=== PATIENT | female | born 1970 | race Caucasian/White ===

== ENCOUNTER 2020-02-10 09:39 | Inpatient (IN) | payer MEDICAID ==
[~2020-02-10] VITALS: Ht 149.9 cm; Wt 76.9 kg
[2020-02-10] MEDS: BLOOD SUGAR DIAGNOSTIC STRIP TEST SCH ×2 (06:30→21:57)
[2020-02-10] MEDS: INSULIN LISPRO 100 UNITS/ML SUBCUT SCH ×3 (07:00→22:02)
[2020-02-10 10:33] LABS: BASOPHILS % 0.2 % (0.0-2.0); EOSINOPHILS % 0.2 % (0.0-5.0); HEMATOCRIT. 36.6 % (36.0-48.0); HEMOGLOBIN. 12.4 g/dL (12.0-16.0); LYMPHOCYTES % 14.7 % (20.0-50.0); MEAN CORPUSCULAR HEMOGLOBIN 29.2 pg (28.0-32.0); MEAN CORPUSCULAR VOLUME 86.1 fL (81.0-99.0); MONOCYTES % 4.3 % (2.0-8.0); NEUTROPHILS % 80.6 % (40.0-76.0); PLATELET 161 x1000/uL (130-400); RED BLOOD CELL COUNT 4.25 mill/uL (4.2-5.4); RED CELL DISTRIBUTION WIDTH 13.6 % (11.6-14.6)
[2020-02-10 10:41] LABS: CHLORIDE 101 mEq/L (98-107)
[2020-02-10 11:51] LABS: BG BASE EXCESS 3.4 mmol/L (-2.0-2.0); BG CARBOXYHEMOGLOBIN 0.4 % (0.5-1.5); BG DEOXYHEMOGLOBIN 6.8 % (0.0-5.0); BG HCO3 ACT 28.3 mmol/L (22.0-26.0); BG METHEMOGLOBIN 0.1 % (0.0-1.5); BG OXYGEN SATURATION 93.2 % (92.0-98.5); BG OXYHEMOGLOBIN 92.7 % (94.0-97.0); BG PCO2 44.2 mmHg (35.0-45.0); BG PH 7.424 (7.350-7.450); BG PO2 65.7 mmHg (75.0-100.0); BG SAMPLE SITE RIGHT RADIAL; BG VENT MODE NASAL CANNULA
[2020-02-10] MEDS ORDERED: CEFTRIAXONE 1 G PREMIX 50 ML IV ONE (12:00)
[2020-02-10] MEDS ORDERED: DEXAMETHASONE 4MG/ML 1ML VIAL IV ONE (12:00)
[2020-02-10] MEDS ORDERED: AZITHROMYCIN 500 MG in DEXT 5% WATER 250 ML IV ONE (12:00)
[2020-02-10] MEDS ORDERED: DEXTROSE 50% WATER 50ML SYRINGE IV PRN (14:15)
[2020-02-10] MEDS ORDERED: DOCUSATE SODIUM 100MG CAPSULE PO PRN (14:15)
[2020-02-10] MEDS ORDERED: ACETAMINOPHEN 325MG TABLET PO PRN ×2 (14:15)
[2020-02-10] MEDS ORDERED: KETOROLAC 15MG/ML VIAL IV PRN (14:15)
[2020-02-10] MEDS ORDERED: MAGNESIUM/ALUMINUM HYDROXIDE/SIMETHICONE 30ML UDC PO PRN (14:15)
[2020-02-10] MEDS ORDERED: ENOXAPARIN 40MG/0.4ML SYR SUBCUT SCH (14:15)
[2020-02-10] MEDS ORDERED: CLONIDINE 0.1MG TABLET PO PRN (14:15)
[2020-02-10] MEDS ORDERED: NITROGLYCERIN 0.4MG TABLET SL SL PRN (14:15)
[2020-02-10] MEDS ORDERED: ONDANSETRON HCL 4MG/2ML INJ IV PRN (14:15)
[2020-02-10] MEDS ORDERED: NA PHOS,M-B/NA PHOS,DI-BA ENEMA 118ML PR PRN (14:15)
[2020-02-10] MEDS ORDERED: GUAIFENESIN 200MG/10ML SUGAR FREE UDC PO PRN (14:15)
[2020-02-10] MEDS ORDERED: ALBUTEROL 6.7GM HFA INHALER ORI PRN (14:15)
[2020-02-10] MEDS ORDERED: ALBUTEROL 6.7GM HFA INHALER ORI SCH (15:00)
[2020-02-10] MEDS: ALBUTEROL 6.7GM HFA INHALER ORI SCH ×2 (15:21→21:55)
[2020-02-10] MEDS: GUAIFENESIN/DM 600MG/30MG ER TAB 12HR PO SCH (15:48)
[2020-02-10] MEDS: ENOXAPARIN 40MG/0.4ML SYR SUBCUT SCH (16:00)
[2020-02-10] MEDS ORDERED: AZITHROMYCIN 500 MG in DEXT 5% WATER 250 ML IV SCH (16:00)
[2020-02-10] MEDS ORDERED: ENOXAPARIN 30MG/0.3ML SYR SUBCUT SCH (21:00)
[2020-02-10] MEDS: FAMOTIDINE 20MG TABLET PO SCH (22:03)
[2020-02-10] MEDS: ASCORBIC ACID 500 MG TABLET PO SCH (22:03)
[2020-02-11] MEDS: INSULIN GLARGINE UD 100 UNITS/ML SYR SUBCUT SCH ×2 (01:00→22:00)
[2020-02-11] MEDS: INSULIN LISPRO 100 UNITS/ML SUBCUT SCH ×7 (06:30→21:24)
[2020-02-11] MEDS: BLOOD SUGAR DIAGNOSTIC STRIP TEST SCH ×4 (06:45→21:14)
[2020-02-11] MEDS ORDERED: DEXAMETHASONE 10 MG/ML VIAL IV SCH (09:00)
[2020-02-11] MEDS ORDERED: CEFTRIAXONE 1 G PREMIX 50 ML IV SCH (09:00)
[2020-02-11 09:36] LABS: BASOPHILS % 0.1 % (0.0-2.0); HEMATOCRIT. 35.2 % (36.0-48.0); HEMOGLOBIN. 11.8 g/dL (12.0-16.0); LYMPHOCYTES % 15.5 % (20.0-50.0); MEAN CORPUSCULAR HEMOGLOBIN 29.2 pg (28.0-32.0); MEAN CORPUSCULAR VOLUME 86.9 fL (81.0-99.0); MONOCYTES % 7.1 % (2.0-8.0); NEUTROPHILS % 77.3 % (40.0-76.0); PLATELET 210 x1000/uL (130-400); RED BLOOD CELL COUNT 4.06 mill/uL (4.2-5.4)
[2020-02-11] MEDS: FAMOTIDINE 20MG TABLET PO SCH ×2 (09:58→21:00)
[2020-02-11] MEDS: GUAIFENESIN/DM 600MG/30MG ER TAB 12HR PO SCH ×2 (09:58→21:00)
[2020-02-11] MEDS: ZINC SULFATE 220 MG ( 50 ) CAPSULE PO SCH (09:58)
[2020-02-11] MEDS: ASCORBIC ACID 500 MG TABLET PO SCH ×2 (09:58→21:00)
[2020-02-11 10:02] LABS: CHLORIDE 102 mEq/L (98-107)
[2020-02-11 10:09] LABS: PHOSPHORUS 3.2 mg/dL (2.5-4.9)
[2020-02-11 10:11] LABS: CREATINE KINASE 25 IU/L (26-192)
[2020-02-11 10:16] LABS: CREATINE KINASE MB FRACTION < 1.0 ng/mL (0.5-3.6)
[2020-02-11] MEDS: AZITHROMYCIN 500 MG in DEXT 5% WATER 250 ML IV SCH (12:00)
[2020-02-11] MEDS: CEFTRIAXONE 1,000 MG in DEXTROSE 5% WATER 50 ML IV SCH (13:00)
[2020-02-11] MEDS: ENOXAPARIN 40MG/0.4ML SYR SUBCUT SCH (16:00)
[2020-02-12] MEDS: INSULIN LISPRO 100 UNITS/ML SUBCUT SCH ×7 (06:58→22:47)
[2020-02-12] MEDS: BLOOD SUGAR DIAGNOSTIC STRIP TEST SCH ×4 (06:59→21:00)
[2020-02-12] MEDS: GUAIFENESIN/DM 600MG/30MG ER TAB 12HR PO SCH ×2 (09:00→22:45)
[2020-02-12 12:00] VITALS: BP_SYST 125; BP_DIAS 70; BP_DIAS 80
[2020-02-12] MEDS: FAMOTIDINE 20MG TABLET PO SCH ×2 (13:39→22:45)
[2020-02-12] MEDS: ZINC SULFATE 220 MG ( 50 ) CAPSULE PO SCH (13:39)
[2020-02-12] MEDS: ASCORBIC ACID 500 MG TABLET PO SCH ×2 (13:39→22:45)
[2020-02-12] MEDS: AZITHROMYCIN 500 MG in DEXT 5% WATER 250 ML IV SCH (13:44)
[2020-02-12] MEDS: DEXAMETHASONE 4MG/ML 1ML VIAL IV SCH (13:44)
[2020-02-12] MEDS ORDERED: METF-816 PO (14:06)
[2020-02-12] MEDS ORDERED: ATOR20TA65 PO (14:08)
[2020-02-12 16:00] VITALS: BP 132/69
[2020-02-12] MEDS: CEFTRIAXONE 1,000 MG in DEXTROSE 5% WATER 50 ML IV SCH (17:02)
[2020-02-12 20:00] VITALS: BP 131/65
[2020-02-12] MEDS: INSULIN GLARGINE UD 100 UNITS/ML SYR SUBCUT SCH (22:00)
[2020-02-12] MEDS: ENOXAPARIN 30MG/0.3ML SYR SUBCUT SCH (22:45)
[2020-02-12] MEDS: ZOLPIDEM TARTRATE 5MG TABLET PO PRN (22:45)
[2020-02-13] VITALS: BP 132/84
[2020-02-13] MEDS: INSULIN GLARGINE UD 100 UNITS/ML SYR SUBCUT SCH ×3 (00:23→22:23)
[2020-02-13 04:00] VITALS: BP 128/65
[2020-02-13] MEDS: BLOOD SUGAR DIAGNOSTIC STRIP TEST SCH ×4 (06:18→22:22)
[2020-02-13] MEDS: INSULIN LISPRO 100 UNITS/ML SUBCUT SCH ×8 (06:18→22:24)
[2020-02-13 08:00] VITALS: BP 127/65
[2020-02-13] MEDS: ASCORBIC ACID 500 MG TABLET PO SCH ×2 (09:25→22:20)
[2020-02-13] MEDS: FAMOTIDINE 20MG TABLET PO SCH ×2 (09:25→22:20)
[2020-02-13] MEDS: DEXAMETHASONE 4MG/ML 1ML VIAL IV SCH (09:25)
[2020-02-13] MEDS: ENOXAPARIN 30MG/0.3ML SYR SUBCUT SCH ×2 (09:25→22:21)
[2020-02-13] MEDS: ZINC SULFATE 220 MG ( 50 ) CAPSULE PO SCH (09:26)
[2020-02-13] MEDS: GUAIFENESIN/DM 600MG/30MG ER TAB 12HR PO SCH ×2 (09:26→22:20)
[2020-02-13 12:00] VITALS: BP 144/63
[2020-02-13] MEDS: CEFTRIAXONE 1,000 MG in DEXTROSE 5% WATER 50 ML IV SCH (13:00)
[2020-02-13] MEDS: AZITHROMYCIN 500 MG in DEXT 5% WATER 250 ML IV SCH (13:30)
[2020-02-13 15:47] VITALS: BP 136/72
[2020-02-13 20:00] VITALS: BP 142/46
[2020-02-13] MEDS: ZOLPIDEM TARTRATE 5MG TABLET PO PRN (22:21)
[2020-02-14 00:37] VITALS: BP 133/47
[2020-02-14 04:00] VITALS: BP 135/71
[2020-02-14] MEDS: INSULIN LISPRO 100 UNITS/ML SUBCUT SCH ×7 (06:18→20:45)
[2020-02-14] MEDS: BLOOD SUGAR DIAGNOSTIC STRIP TEST SCH ×4 (06:19→20:45)
[2020-02-14 08:20] VITALS: BP 137/63
[2020-02-14] MEDS: GUAIFENESIN/DM 600MG/30MG ER TAB 12HR PO SCH ×2 (08:46→20:44)
[2020-02-14] MEDS: FAMOTIDINE 20MG TABLET PO SCH ×2 (08:46→20:44)
[2020-02-14] MEDS: ZINC SULFATE 220 MG ( 50 ) CAPSULE PO SCH (08:46)
[2020-02-14] MEDS: ASCORBIC ACID 500 MG TABLET PO SCH ×2 (08:46→20:44)
[2020-02-14] MEDS: DEXAMETHASONE 4MG/ML 1ML VIAL IV SCH (08:47)
[2020-02-14] MEDS: ENOXAPARIN 30MG/0.3ML SYR SUBCUT SCH ×2 (08:47→20:44)
[2020-02-14 11:54] VITALS: BP 134/61
[2020-02-14] MEDS: AZITHROMYCIN 500 MG in DEXT 5% WATER 250 ML IV SCH (13:19)
[2020-02-14] MEDS: CEFTRIAXONE 1,000 MG in DEXTROSE 5% WATER 50 ML IV SCH (15:23)
[2020-02-14 16:00] VITALS: BP 134/62
[2020-02-14 20:00] VITALS: BP 135/64
[2020-02-14] MEDS: ZOLPIDEM TARTRATE 5MG TABLET PO PRN (20:58)
[2020-02-14] MEDS: INSULIN GLARGINE UD 100 UNITS/ML SYR SUBCUT SCH (21:56)
[2020-02-15] VITALS: BP 122/76
[2020-02-15 04:00] VITALS: BP 134/75
[2020-02-15] MEDS: BLOOD SUGAR DIAGNOSTIC STRIP TEST SCH ×4 (05:54→21:09)
[2020-02-15] MEDS: INSULIN LISPRO 100 UNITS/ML SUBCUT SCH ×7 (05:54→21:08)
[2020-02-15 08:00] VITALS: BP 133/70
[2020-02-15] MEDS: DEXAMETHASONE 4MG/ML 1ML VIAL IV SCH (08:54)
[2020-02-15] MEDS: ASCORBIC ACID 500 MG TABLET PO SCH ×2 (08:54→21:07)
[2020-02-15] MEDS: GUAIFENESIN/DM 600MG/30MG ER TAB 12HR PO SCH ×2 (08:54→21:07)
[2020-02-15] MEDS: FAMOTIDINE 20MG TABLET PO SCH ×2 (08:54→21:18)
[2020-02-15] MEDS: ZINC SULFATE 220 MG ( 50 ) CAPSULE PO SCH (08:54)
[2020-02-15] MEDS: ENOXAPARIN 30MG/0.3ML SYR SUBCUT SCH ×2 (08:55→21:07)
[2020-02-15 12:00] VITALS: BP 123/64
[2020-02-15 16:00] VITALS: BP 133/65
[2020-02-15 20:00] VITALS: BP 116/59
[2020-02-15] MEDS: INSULIN GLARGINE UD 100 UNITS/ML SYR SUBCUT SCH (21:19)
[2020-02-15] MEDS: ZOLPIDEM TARTRATE 5MG TABLET PO PRN (21:22)
[2020-02-16] VITALS: BP 136/67
[2020-02-16 04:00] VITALS: BP 110/72
[2020-02-16] MEDS: BLOOD SUGAR DIAGNOSTIC STRIP TEST SCH ×4 (05:30→21:14)
[2020-02-16] MEDS: INSULIN LISPRO 100 UNITS/ML SUBCUT SCH ×7 (05:30→21:14)
[2020-02-16 08:00] VITALS: BP 121/74
[2020-02-16 12:00] VITALS: BP 106/59
[2020-02-16] MEDS: GUAIFENESIN/DM 600MG/30MG ER TAB 12HR PO SCH ×2 (12:18→21:13)
[2020-02-16] MEDS: ZINC SULFATE 220 MG ( 50 ) CAPSULE PO SCH (12:18)
[2020-02-16] MEDS: DEXAMETHASONE 4MG/ML 1ML VIAL IV SCH (12:18)
[2020-02-16] MEDS: FAMOTIDINE 20MG TABLET PO SCH ×2 (12:18→21:13)
[2020-02-16] MEDS: ASCORBIC ACID 500 MG TABLET PO SCH ×2 (12:19→21:13)
[2020-02-16] MEDS: ENOXAPARIN 30MG/0.3ML SYR SUBCUT SCH ×2 (12:19→21:13)
[2020-02-16 16:00] VITALS: BP 118/65
[2020-02-16 20:00] VITALS: BP 101/53
[2020-02-16] MEDS: INSULIN GLARGINE UD 100 UNITS/ML SYR SUBCUT SCH (21:55)
[2020-02-17] VITALS (7 sets, daily range): BP systolic 102–123; BP diastolic 55–68
[2020-02-17] MEDS: INSULIN LISPRO 100 UNITS/ML SUBCUT SCH ×7 (06:09→22:35)
[2020-02-17] MEDS: BLOOD SUGAR DIAGNOSTIC STRIP TEST SCH ×4 (06:10→21:00)
[2020-02-17] MEDS: ASCORBIC ACID 500 MG TABLET PO SCH ×2 (09:01→22:34)
[2020-02-17] MEDS: DEXAMETHASONE 4MG/ML 1ML VIAL IV SCH (09:01)
[2020-02-17] MEDS: ZINC SULFATE 220 MG ( 50 ) CAPSULE PO SCH (09:01)
[2020-02-17] MEDS: ENOXAPARIN 30MG/0.3ML SYR SUBCUT SCH ×2 (09:01→22:34)
[2020-02-17] MEDS: GUAIFENESIN/DM 600MG/30MG ER TAB 12HR PO SCH ×2 (09:02→22:33)
[2020-02-17] MEDS: FAMOTIDINE 20MG TABLET PO SCH ×2 (09:02→22:34)
[2020-02-17] MEDS: INSULIN GLARGINE UD 100 UNITS/ML SYR SUBCUT SCH (22:35)
[2020-02-18 04:00] VITALS: BP 107/68
[2020-02-18] MEDS: BLOOD SUGAR DIAGNOSTIC STRIP TEST SCH ×4 (05:43→20:22)
[2020-02-18] MEDS: INSULIN LISPRO 100 UNITS/ML SUBCUT SCH ×7 (05:49→20:21)
[2020-02-18 08:00] VITALS: BP 100/60
[2020-02-18 08:16] LABS: BG BASE EXCESS 1.2 mmol/L (-2.0-2.0); BG CARBOXYHEMOGLOBIN 0.4 % (0.5-1.5); BG DEOXYHEMOGLOBIN 6.4 % (0.0-5.0); BG FRACTION INSPIRED OXYGEN 100; BG HCO3 ACT 25.7 mmol/L (22.0-26.0); BG METHEMOGLOBIN 0.3 % (0.0-1.5); BG OXYGEN SATURATION 93.6 % (92.0-98.5); BG OXYHEMOGLOBIN 92.9 % (94.0-97.0); BG PCO2 40.5 mmHg (35.0-45.0); BG PH 7.421 (7.350-7.450); BG PO2 68.7 mmHg (75.0-100.0); BG SAMPLE SITE RIGHT RADIAL; BG VENT MODE MASK - NRB
[2020-02-18] MEDS: DEXAMETHASONE 4MG/ML 1ML VIAL IV SCH (10:09)
[2020-02-18] MEDS: ZINC SULFATE 220 MG ( 50 ) CAPSULE PO SCH (10:09)
[2020-02-18] MEDS: FAMOTIDINE 20MG TABLET PO SCH ×2 (10:09→20:19)
[2020-02-18] MEDS: GUAIFENESIN/DM 600MG/30MG ER TAB 12HR PO SCH ×2 (10:09→20:19)
[2020-02-18] MEDS: ENOXAPARIN 30MG/0.3ML SYR SUBCUT SCH ×2 (10:10→20:20)
[2020-02-18] MEDS: ASCORBIC ACID 500 MG TABLET PO SCH ×2 (10:10→20:19)
[2020-02-18 12:00] VITALS: BP 110/65
[2020-02-18 16:00] VITALS: BP 101/50
[2020-02-18 20:00] VITALS: BP 105/56
[2020-02-18] MEDS: INSULIN GLARGINE UD 100 UNITS/ML SYR SUBCUT SCH (21:48)
[2020-02-19] VITALS: BP 100/54
[2020-02-19 04:00] VITALS: BP_SYST 100; BP_SYST 101; BP_DIAS 54; BP_DIAS 55
[2020-02-19] MEDS: INSULIN LISPRO 100 UNITS/ML SUBCUT SCH ×7 (06:11→22:04)
[2020-02-19] MEDS: BLOOD SUGAR DIAGNOSTIC STRIP TEST SCH ×4 (06:11→21:55)
[2020-02-19 08:00] VITALS: BP 96/58
[2020-02-19] MEDS: ASCORBIC ACID 500 MG TABLET PO SCH ×2 (09:07→21:54)
[2020-02-19] MEDS: DEXAMETHASONE 4MG/ML 1ML VIAL IV SCH (09:07)
[2020-02-19] MEDS: GUAIFENESIN/DM 600MG/30MG ER TAB 12HR PO SCH ×2 (09:07→21:54)
[2020-02-19] MEDS: FAMOTIDINE 20MG TABLET PO SCH ×2 (09:07→21:53)
[2020-02-19] MEDS: ZINC SULFATE 220 MG ( 50 ) CAPSULE PO SCH (09:08)
[2020-02-19] MEDS: ENOXAPARIN 30MG/0.3ML SYR SUBCUT SCH ×2 (09:08→21:53)
[2020-02-19 12:00] VITALS: BP 98/59
[2020-02-19 16:00] VITALS: BP 119/51
[2020-02-19 19:00] VITALS: BP 103/52
[2020-02-19] MEDS: ZOLPIDEM TARTRATE 5MG TABLET PO PRN (22:03)
[2020-02-19] MEDS: INSULIN GLARGINE UD 100 UNITS/ML SYR SUBCUT SCH (22:05)
[2020-02-20 00:05] VITALS: BP 108/74
[2020-02-20 04:00] VITALS: BP 110/59
[2020-02-20] MEDS: BLOOD SUGAR DIAGNOSTIC STRIP TEST SCH ×4 (06:37→21:00)
[2020-02-20] MEDS: INSULIN LISPRO 100 UNITS/ML SUBCUT SCH ×7 (07:10→22:23)
[2020-02-20 07:27] LABS: HEMATOCRIT 41.1 % (36.0-48.0); MEAN CORPUSCULAR HEMOGLOBIN 29.3 pg (28.0-32.0); MEAN CORPUSCULAR VOLUME 85.8 fL (81.0-99.0); PLATELET 341 x1000/uL (130-400); RED BLOOD CELL COUNT 4.79 mill/uL (4.2-5.4); RED CELL DISTRIBUTION WIDTH 13.6 % (11.6-14.6)
[2020-02-20 07:41] LABS: CHLORIDE 102 mEq/L (98-107)
[2020-02-20 08:00] VITALS: BP 95/53
[2020-02-20] MEDS: ZINC SULFATE 220 MG ( 50 ) CAPSULE PO SCH (08:19)
[2020-02-20] MEDS: FAMOTIDINE 20MG TABLET PO SCH ×2 (08:19→22:24)
[2020-02-20] MEDS: ASCORBIC ACID 500 MG TABLET PO SCH ×2 (08:19→22:24)
[2020-02-20] MEDS: GUAIFENESIN/DM 600MG/30MG ER TAB 12HR PO SCH ×2 (08:19→22:24)
[2020-02-20] MEDS: ENOXAPARIN 30MG/0.3ML SYR SUBCUT SCH ×2 (08:19→22:24)
[2020-02-20 12:00] VITALS: BP 97/50
[2020-02-20 16:00] VITALS: BP 97/49
[2020-02-20 20:47] VITALS: BP 92/56
[2020-02-20] MEDS: INSULIN GLARGINE UD 100 UNITS/ML SYR SUBCUT SCH (22:23)
[2020-02-21 00:22] VITALS: BP 90/50
[2020-02-21 04:00] VITALS: BP 90/52
[2020-02-21] MEDS: BLOOD SUGAR DIAGNOSTIC STRIP TEST SCH (06:40)
[2020-02-21] MEDS: INSULIN LISPRO 100 UNITS/ML SUBCUT SCH ×2 (06:40→07:10)
[2020-02-21 08:00] VITALS: BP 88/54
[2020-02-21] MEDS: GUAIFENESIN/DM 600MG/30MG ER TAB 12HR PO SCH (09:00)
[2020-02-21] MEDS: FAMOTIDINE 20MG TABLET PO SCH (09:02)
[2020-02-21] MEDS: ASCORBIC ACID 500 MG TABLET PO SCH (09:02)
[2020-02-21] MEDS: ENOXAPARIN 30MG/0.3ML SYR SUBCUT SCH (09:02)
[2020-02-21] MEDS: ZINC SULFATE 220 MG ( 50 ) CAPSULE PO SCH (09:02)
[2020-02-21 10:21] VITALS: BP 88/54
== END 2020-02-21 11:25 | disposition home or self-care (01) | DRG 720 ==
LOC: ER 09:49 → MICUSO 13:56 → EDBEDREQ 14:05 → 7EST 02-12 10:11
PROVIDERS: ADMIT Internal Medicine; ATTEND Internal Medicine
DX: A41.89 Other specified sepsis (principal); U07.1 COVID-19; J96.01 Acute respiratory failure with hypoxia; J12.89 Other viral pneumonia; E11.65 Type 2 diabetes mellitus with hyperglycemia; E87.1 Hypo-osmolality and hyponatremia
CPT/HCPCS: 36415; 36600; 71045; 71250; 80048; 80053; 80061; 81025; 82306; 82375; 82550; 82553; 82805; 82962; 83036; 83735; 83880; 84100; 84484; 85025; 85027; 87635; 93005; 93970; 99291; J0456; J0696; J1100; J1650; J1815; J7060